=== PATIENT | male | born 1990 | race Caucasian/White ===

== ENCOUNTER 2022-06-21 08:43 | Emergency (ER) | payer MEDICAID, SELFPAY ==
[2022-06-21 08:53] VITALS: BP 136/93; BP 146/84; PULSE 102; PULSE 120; RESP 18; TEMP 36.7; O2SAT 100; O2SAT 97; BMI 25.1
--- NOTE | 2022-06-21 08:57 | ED_ITS ---
HPI - Overdose General Chief Complaint: Overdose Stated Complaint: OVERDOSE Time Seen by Provider: 06/21/22 08:57 Source: patient and EMS Mode of arrival: EMS History of Present Illness HPI Narrative: 32 yo male with history of opiate abuse, prior sobriety x7 months cold turkey presents to the emergency department via EMS for evaluation after he was given Narcan. Patient was found in his car this morning, pulled over the side of the road unresponsive and apneic. He was given 4 mg of intranasal Narcan. EMS arrived, IV was established an additional 2 mg of IV Narcan were given. Patient woke up and was awake and alert on his transport to the emergency room. He admits to using 2 bags of heroin her this morning, another 2 bags late last night. He reports he just was sober for 7 months and just relapsed. He states he relapsed because he ?lost God. ? No other drug use today. No alcohol use. MD complaint: accidental overdose Onset (ago): minute(s) Context: Accidental Overdose: wanted to get high Associated symptoms: depression Treatments Prior to Arrival: narcan Related Data Allergies Allergy/AdvReac Type Severity Reaction Status Date / Time No Known Allergies Allergy Unverified 08/05/20 15:46 [No Known Allergies*] Review of Systems Review of Systems: Constitutional: No Fever, No Chills ENT/Mouth: No sore throat, No Rhinorrhea Cardiovascular: No Chest Pain, No SOB, No Orthopnea, No Edema Respiratory: No Cough, No Sputum, No Wheezing, No dyspnea Gastrointestinal: + Nausea, No Vomiting, No Diarrhea, No abdominal Pain, No Hematochezia, No Melena Genitourinary: No Dysuria, No Urinary Frequency, No Hematuria Musculoskeletal: No joint pain, No Myalgias Skin: No Skin Lesions, No rash Neuro: No Weakness, No Numbness, No Dizziness, +Headache Psych: No Anxiety/Panic, + Depression, No SI, No HI Heme/Lymph: No Bruising, No Lymphadenopathy Endocrine: No Polyuria, No Polydipsia PMFSH Social History Social History Use of substances other than those prescribed or required for medical reasons: Yes Substance Use Type: Crack/Cocaine and Heroin Advance Directives: No Advance Directives Information Provided: No Physical Exam Vital Signs: Vital Signs: Last Vital Signs Temp 98.1 F 06/21/22 08:53 Pulse 102 H 06/21/22 08:53 Resp 18 08/03/22 08:53 BP 136/93 H 06/21/22 08:53 Pulse Ox 100 06/21/22 08:53 O2 Del Method 06/21/22 08:53 BMI result Body Mass Index 25.1 Appearance: Alert. Oriented X3. No acute distress. Eyes: Pupils 3mm equal, round and reactive to light. ENT: Pharynx normal. Neck: Normal inspection. Neck supple. CVS: Tachycardic, heart rate 105, regular rhythm.. Pulses normal. Respiratory: No respiratory distress. Breath sounds normal. Abdomen: Soft and nontender. +BS x4 Skin: Skin warm and dry. Normal skin color. Normal skin turgor. No rashes. Extremities: No lower extremity edema. No track gaines on his upper extremities. Neuro/psych: Oriented X 3. No motor deficit. No sensory deficit. Flat affect, does not make eye contact. Course Course Course Narrative: 32-year-old male presents to the ER for evaluation of opiate overdose, requiring Narcan after being found unresponsive and apneic in his car. He arrives to the ER alert and oriented x3. He is tachycardic to 105. Blood pressure stable. He reports a headache. Will order Motrin. No trauma. He is declining wishes to speak with a cross country coach or the care team. He is not suicidal and does not wish to get help. He states he can do this on his own. Reevaluation(s) Reevaluation #1: Patient has been observed in the emergency department for almost 3 hours. He is awake and alert, wants to go home. He does not want to talk with her cross country coach. He is stable for discharge home with outpatient follow-up. Critical Care Time Critical Care Time Critical Care Time: No Discharge Plan Discharge Clinical Impression: Drug overdose Patient Disposition: Home, Self-Care Instructions: Adult Overdose (ED) Additional Instructions: Do not do heroin it can kill you Recommend detox If you develop new or worsening symptoms call 911 or come back to the ER for further evaluation. Interventions: ED Discharge Assessment Last Done: 06/21/22 10:59 Discharge Date/Time: 06/21/22 10:59
[2022-06-21] MEDS: Ibuprofen 600 MG TABLET PO (09:31)
== END 2022-06-21 10:59 | disposition home or self-care (01) ==
PROVIDERS: Emergency Provider Emergency Medicine Emergency Medical Services
DX: T40.1X1A Poisoning by heroin, accidental (unintentional), initial encounter (principal); Y92.9 Unspecified place or not applicable; F14.19 Cocaine abuse with unspecified cocaine-induced disorder
CPT/HCPCS: 99283; 99284

== ENCOUNTER 2022-09-24 13:28 | Emergency (ER) | payer MEDICAID, SELFPAY ==
[2022-09-24 13:43] VITALS: O2SAT 95; BMI 25.4
--- NOTE | 2022-09-24 13:43 | ED_ITS ---
HPI - Overdose General Chief Complaint: Overdose Stated Complaint: OD,NARCAN GIVEN W/GOOD RESULTS PER EMS Time Seen by Provider: 09/24/22 13:43 Source: patient and EMS Mode of arrival: EMS Limitations: other (Noncompliant) History of Present Illness HPI Narrative: 32-year-old male presents via EMS for heroin overdose. Was found unresponsive at his home, given 8 mg of intranasal Narcan. Patient is uncooperative, refused vital signs during EMS transport. Patient is not answering questions at this time. He denies suicidal ideation and does not want detox. complaint: accidental overdose Onset (ago): hour(s) (Within the hour of arrival) Timing confirmed by: family member Context: Accidental Overdose: wanted to get high Associated symptoms: depression Treatments Prior to Arrival: narcan Related Data Allergies Allergy/AdvReac Type Severity Reaction Status Date / Time No Known Allergies Allergy Unverified 08/05/20 15:46 [No Known Allergies*] Review of Systems Review of Systems: Yes Other (Unobtainable as patient is noncompliant.) [facility] Past Medical History Attestation statement: The following information was validated with the patient. Source: old records reviewed Social History Social History Substance Use Type: Crack/Cocaine and Heroin Advance Directives: No Advance Directives Information Provided: No Physical Exam Vital Signs: Vital Signs: Last Vital Signs Temp 99.2 F 09/24/22 14:59 Pulse 82 09/24/22 14:59 Resp 20 09/24/22 14:59 BP 111/63 09/24/22 14:59 Pulse Ox 92 09/24/22 14:59 O2 Del Method 09/24/22 14:59 BMI result Body Mass Index 25.4 Appearance: Alert. Oriented X3. No acute distress. Eyes: Pupils equal, round and reactive to light. ENT: Pharynx normal. Neck: Normal inspection. Neck supple. CVS: Normal heart rate and rhythm. Pulses normal. Respiratory: No respiratory distress. Breath sounds normal. Abdomen: Soft and nontender. Skin: Skin warm and dry. Normal skin color. Normal skin turgor. Extremities: Moves all extremities against resistance. Neuro: No motor deficit. No sensory deficit. Cranial nerves 2-12 intact. Course Course Course Narrative: 32-year-old male presents for heroin overdose. Reports she used 2 bags heroin today, was found by family members. 911, EMS gave 8 mg of intranasal Narcan. After Narcan was given, patient alert and oriented, with even unlabored respirations. At this time patient is angry. Denies suicidal ideation, denies that this was an overdose. Does not want detox, does not want to answer any questions, does not want to speak to anyone else. He is answering questions with one-word answers. Patient has even unlabored respirations, vital signs have been refused by this patient. Patient has had prior visit for similar circumstance with similar presentation. 14:42 patient maintains even unlabored respirations, oxygen saturation 95-97% on room air. Patient will be discharged home. Patient understands that he is more than welcome to return at any time for evaluation. MDM - Overdose Differential Diagnosis Differential diagnosis: Likely drug overdose Medical Records Attestation: I reviewed the patient's medical records. Discharge Plan Discharge Clinical Impression: Drug overdose Patient Disposition: Home, Self-Care Instructions: Adult Overdose (ED) Additional Instructions: Consider detox. Thank you for choosing this emergency department for evaluation. Please follow-up with primary care physician as needed. Return to the emergency department for any new, concerning, or worsening symptoms.
--- NOTE | 2022-09-24 13:52 | PC.NURSE ---
Patient refusing vital signs from this RN provider Deidra notified.
--- NOTE | 2022-09-24 14:06 | PC.NURSE ---
Security called for cell changer
--- NOTE | 2022-09-24 14:14 | PC.NURSE ---
cell phone in locker #1
[2022-09-24 14:59] VITALS: BP 111/63; PULSE 82; RESP 20; TEMP 37.3; O2SAT 92
== END 2022-09-24 15:16 | disposition home or self-care (01) ==
PROVIDERS: Emergency Provider Emergency Medicine
DX: T40.1X1A Poisoning by heroin, accidental (unintentional), initial encounter (principal); Y92.9 Unspecified place or not applicable; Z71.51 Drug abuse counseling and surveillance of drug abuser
CPT/HCPCS: 99283

== ENCOUNTER 2024-06-21 21:29 | Emergency (ER) | payer MEDICAID, SELFPAY ==
[2024-06-21 21:59] VITALS: BP 105/62; PULSE 62; RESP 16; TEMP 36.4; O2SAT 95; BMI 22.9
[2024-06-22 00:12] VITALS: BP 111/69; PULSE 53; RESP 16; TEMP 36.4; O2SAT 97
--- NOTE | 2024-06-22 00:25 | ED.GENADULT ---
HPI - General Adult General Chief complaint: General Medical Stated complaint: rt ear pain Time Seen by Provider: 06/22/24 00:03 Source: patient and RN notes reviewed Mode of arrival: ambulatory Limitations: no limitations History of Present Illness ED Provider: Maame Dyson PA-C [facility] narrative: This is a 34-year-old male, with no known medical problems, who presents emergency department with complaints of right ear pain x3 days. Patient states that several days ago he went [place]. He states that several hours later he developed ear pain. He denies recent history of ear infections however states that he believes he had ear infections as a child. He states that he tried [id number] ear drops which did not provide him with any relief. He reports decreased hearing from the ear, and wetness n his right ear. Denies any fevers, chills, chest pain, shortness breath, cough. MD complaint: Right ear pain Onset (ago): day(s) Radiation: non-radiation Severity: moderate Quality: aching Pain Consistency: constant Relieving factors: none Exacerbating factors: none Associated symptoms: denies other symptoms Treatments prior to arrival: none Related Data Previous Rx's ?Medication ?Instructions ?Recorded amoxicillin 875 mg-potassium 1 tab PO BID 7 days #14 tabs 06/22/24 clavulanate 125 mg tablet ciprofloxacin 0.3 %-dexamethasone 4 drp otic (ears) BID 7 days #7.5 06/22/24 0.1 % ear drops,suspension mL Allergies Allergy/AdvReac Type Severity Reaction Status Date / Time No Known Allergies Allergy Verified 06/21/24 21:59 [No Known Allergies*] Review of Systems Review of Systems: Yes all other systems are reviewed and are negative Constitutional: Constitutional: Reports as per [facility] Past Medical History Attestation statement: The following information was validated with the patient. Social History Social History Alcohol intake: never Smoked in Last 30 Days: Yes Use of substances other than those prescribed or required for medical reasons: Yes Substance Use Type: Crack/Cocaine and Heroin Substance Use Frequency: Daily Advance Directives: No Advance Directives Information Provided: No Do you have a plan to hurt others: No Plan Physical Exam ED Vital Signs: Vital Signs - 24 hr 06/21/24 21:59 06/22/24 00:12 06/22/24 00:52 Temperature 97.6 F 97.6 F 97.6 F Pulse Rate 62 53 53 Respiratory Rate 16 16 16 Blood Pressure 105/62 111/69 111/69 Pulse Oximetry 95 97 97 Oxygen Delivery Method Room Air Room Air Room Air BMI result Body Mass Index 22.9 Const General: cooperative, comfortable and no acute distress Orientation/consciousness: patient oriented x3 Limitations: no limitations HENMT Other: Preauricular lymph node tenderness to palpation, no pain with ear tugging. No mastoid tenderness. Right auditory canal is very edematous, with exudates, TM is nearly swollen shut, unable to visualize any portion of the TM secondary to edema. Pain with physical exam Left TM unremarkable. Head: Yes normal to inspection, Yes normocephalic and Yes atraumatic Ears: hearing grossly normal bilaterally General nose exam: Normal external nose present Face and sinus: Yes normal facial exam Mouth: Normal oral and palatal mucosa present, oropharynx normal and moist mucous membranes Throat: Yes posterior oropharynx normal Eyes General: appearance normal, both eyes and all related structures Eyelids: Yes eyelids normal Conjunctivae: conjunctivae normal Sclerae: sclerae normal Pupils: Equal, round and reactive pupils present EOM: EOMs intact bilaterally Neck Neck: Yes normal visual inspection, Yes full ROM and Yes no lymphadenopathy Lymphatic: no lymphadenopathy noted Chest Chest palpation & inspection: normal inspection of the chest Resp Effort & Inspection: normal respiratory effort and able to speak in complete sentences Auscultation: clear to auscultation bilaterally, no crackles, no rales, no rhonchi and no wheezes Cardio Rate: regular rate Rhythm: regular rhythm Heart sounds: S1 normal heart sound present and S2 normal heart sound present GI Inspection: Yes normal to inspection Skin General skin exam: no rashes or lesions noted Trauma: no lacerations or abrasions Wounds: no wounds Neuro General: patient oriented x3 and moves all extremities Cranial nerves: Yes Equal, round and reactive pupils present Extrem General: Yes normal to inspection Right upper extremity: normal to inspection Left upper extremity: normal to inspection Right lower extremity: normal to inspection Left lower extremity: normal to inspection Medications Administered Discontinued Medications Generic Name Dose Route Start Last Admin Trade Name Freq PRN Reason Stop Dose Admin Amoxicillin/Clavulanate Potassium 875 mg 06/22/24 00:29 06/22/24 00:47 Amoxicillin/Potassium Clav 875 Mg Tablet PO 06/22/24 00:30 875 mg ONCE ONE Administration Medical Decision Making Medical Decision Making [facility] Narrative: This is a 34-year-old male with no known medical problems, who presents emergency department with complaints of right ear pain x3 days. On arrival, vital signs within normal limits. Right ear with significantly edematous auditory canal with exudates noted, consistent with otitis media. Unable to visualize TM. Given unable to discern whether not otitis media is present, will treat with oral and topical antibiotics. Wick was placed in right ear canal to help distribute the ear drops. Advised that if this does fall out, 2 not worry. Can have this removed in several days if needed. Given 1st dose of antibiotic in the department. Ciprodex is not on formulary therefore sent to the pharmacy. Patient given strict return precautions. He understands and agrees with plan. Patient stable for discharge. Differential Diagnosis Differential Diagnoses: The differential diagnosis associated with the presentation includes Otitis media, otitis externa, mastoiditis- unlikely, TM perforation Discharge Plan Discharge Clinical Impression: Otitis externa Patient Disposition: Home, Self-Care Instructions: Otitis Externa (ED) Additional Instructions: You were seen in the emergency department due to an ear infection. Your ear canal is very inflamed therefore we placed a wick in your ear. This will fall out in several days. This helps allow the medication to distribute further back into your ear canal. Please take prescribed antibiotic as directed. You were given your 1st dose of antibiotics in the department today. If any new or worsening symptoms occur including but not limited to worsening pain, swelling, fevers, chills, please return for re-evaluation. Prescriptions: New amoxicillin-pot clavulanate 875-125 mg tablet 1 tab PO BID 7 Days Qty: 14 0RF ciprofloxacin-dexamethasone 0.3-0.1 % drops,suspension 4 drp otic (ears) BID 7 Days Qty: 7.5 0RF Interventions: ED Discharge Assessment Last Done: 06/22/24 00:52 Discharge Date/Time: 06/22/24 00:54 Print Language: Amharic
[2024-06-22] MEDS: Amoxicillin/Potassium Clav 875 MG TABLET PO (00:47)
[2024-06-22 00:52] VITALS: BP 111/69; PULSE 53; RESP 16; TEMP 36.4; O2SAT 97
== END 2024-06-22 00:54 | disposition home or self-care (01) ==
PROVIDERS: Emergency Provider Emergency Medicine
DX: H60.91 Unspecified otitis externa, right ear (principal); H92.01 Otalgia, right ear
CPT/HCPCS: 99283; 99284

== ENCOUNTER 2024-07-02 19:46 | Emergency (ER) | payer MEDICAID, SELFPAY ==
[2024-07-02 19:57] VITALS: BP 107/75; PULSE 71; RESP 18; TEMP 36.7; O2SAT 97; BMI 23.0
--- NOTE | 2024-07-02 20:00 | ED.GENADULT ---
HPI - General Adult General Chief complaint: General Medical Stated complaint: ear infection Time Seen by Provider: 07/02/24 23:37 Source: patient, RN notes reviewed and old records reviewed Mode of arrival: ambulatory Limitations: no limitations History of Present Illness ED Provider: Vini CHAVEZ narrative: 34-year-old male presents for evaluation of right ear pain. Patient reports that about 2 weeks ago [place] 2 [place] a row He came here 10 days ago complaining of right ear pain He reports that he was prescribed a type of amoxicillin and a steroid drop He was having insurance issues so was unable to pick the prescription up initially His pain was somewhat improving when he is able to correct his insurance so he never picked up the prescriptions Since yesterday his pain has returned He called the pharmacy but was told that his prescriptions were no longer available He is complaining of continued right ear pain and drainage from the ear but denies any fevers, chills He did not stick anything in his ear The patient does admit that he took 3 doses of amoxicillin that were prescribed to a friend earlier today Severity: similar to prior episodes Severity scale (1-10): 7 Quality: aching Pain Consistency: constant Related Data Previous Rx's ?Medication ?Instructions ?Recorded amoxicillin 875 mg-potassium 1 tab PO BID 7 days #14 tabs 06/22/24 clavulanate 125 mg tablet ciprofloxacin 0.3 %-dexamethasone 4 drp otic (ears) BID 7 days #7.5 06/22/24 0.1 % ear drops,suspension mL amoxicillin 875 mg-potassium 1 tab PO Q12H #14 tabs 07/03/24 clavulanate 125 mg tablet ciprofloxacin 0.3 %-dexamethasone 4 drp otic (ears) BID 7 days #7.5 07/03/24 0.1 % ear drops,suspension mL Allergies Allergy/AdvReac Type Severity Reaction Status Date / Time No Known Allergies Allergy Verified 07/02/24 20:01 [No Known Allergies*] Review of Systems Constitutional: Constitutional: Denies body ache(s), Denies chills and Denies fever(s) Eyes: Eyes: Denies blurry vision ENT: Reports ear discharge, Reports otalgia and Denies sore throat Cardiovascular: Cardiovascular: Denies chest pain and Denies dyspnea Respiratory: Respiratory: Denies cough and Denies dyspnea Gastrointestinal: Gastrointestinal: Denies abdominal pain and Denies vomiting Musculoskeletal: Musculoskeletal: Denies back pain Integumentary/Breasts: Skin/Breast: Denies rash Psychiatric: Psychiatric: Denies anxiety [facility] Social History Social History Alcohol intake: never Substance Use Type: Crack/Cocaine and Heroin Advance Directives: No Advance Directives Information Provided: No Physical Exam ED Vital Signs: Vital Signs - 24 hr 07/02/24 19:57 07/02/24 22:10 Temperature 98.0 F 98.3 F Pulse Rate 71 58 Respiratory Rate 18 18 Blood Pressure 107/75 100/61 Pulse Oximetry 97 97 Oxygen Delivery Method Room Air Room Air BMI result Body Mass Index 23.0 Const General: healthy appearing, comfortable, no acute distress, alert and awake Nutritional Appearance: well nourished Orientation/consciousness: patient oriented x3 HENMT Other: There is no right mastoid tenderness or postauricular edema. There is right periauricular lymphadenopathy. There is some tenderness with manipulation of the tragus on the right. There is right external ear canal edema with whitish otorrhea. Visualized portion of the TM is also erythematous and bulging but no obvious perforation. Left TM is pearly white without erythema or effusion. Left external ear canal is clear Head: Yes normocephalic and Yes atraumatic Throat: Yes posterior oropharynx normal Eyes Eyelids: Yes eyelids normal Conjunctivae: conjunctivae normal Sclerae: sclerae normal Corneas: corneas normal Pupils: Equal, round and reactive pupils present EOM: EOMs intact bilaterally Neck Neck: Yes full ROM Resp Effort & Inspection: normal respiratory effort, able to speak in complete sentences and not labored Skin General skin exam: no rashes or lesions noted and elasticity normal Neuro General: patient oriented x3 Cranial nerves: Yes Equal, round and reactive pupils present and Yes Bilaterally intact EOM present Cognition (Neuro): normal cognition Extrem Other: Moving all extremities well without any obvious deformities Course Course Course Narrative: This is an RME done by OSEAS Jiménez: Additional HPI, ROS, PE not included below will be deferred to primary provider. 34-year-old male presents with right ear pain the past few days worsening however patient has been taking amoxicillin that he had at home with some relief of symptoms. However pain still present. Medical Decision Making Medical Decision Making MDM Narrative: Patient appears to have acute right otitis externa as well as otitis media. Based on history, otitis externa is more likely, however given that the TM is erythematous and bulging as well we will cover for both. He never picked up the prescriptions that were sent 10 days ago, I will recent these prescriptions for the patient. Differential Diagnosis Differential Diagnoses: The differential diagnosis associated with the presentation includes Otitis media Otitis externa Mastoiditis Malignant otitis externa Tympanic membrane rupture Lab Data 07/02/24 21:48 07/02/24 21:48 Labs: Lab Results 07/02/24 Range/Units 21:48 WBC 8.1 (4.8-10.8) X10*3/uL RBC 4.25 L (4.60-5.80) X10*6/uL Hgb 13.2 L (14.0-18.0) g/dl Hct 37.9 L (42.0-52.0) % MCV 89.2 (80.0-98.0) fL MCH 31.1 (27.0-33.0) pg MCHC 34.8 (31.0-36.0) g/dl RDW 12.5 (11.0-16.0) % Plt Count 202 (160-400) X10*3/uL MPV 9.1 L (9.4-12.4) fL Immature Gran % (Auto) 0.1 (0.0-0.4) % Neut % (Auto) 52.9 (45-73) % Lymph % (Auto) 37.2 (20-40) % [place] % (Auto) 7.2 (2-11) % Eos % (Auto) 2.0 (0-4) % Baso % (Auto) 0.6 (0-2) % Lymph # (Auto) 3.0 (1.2-4.9) X10*3/uL [place] # (Auto) 0.6 (0.1-1.2) X10*3/uL Eos # (Auto) 0.2 (0.0-0.4) X10*3/uL Baso # (Auto) 0.1 (0.0-0.2) X10*3/uL Abs Immat Gran (auto) 0.01 (0.00-0.03) X10*3/uL Absolute Neuts (auto) 4.3 (2.0-8.3) x10*3/uL Absolute Nucleated RBC 0.000 (0.0-0.012) X10*3/uL Nucleated RBC % (auto) 0.0 (0.0-0.2) /100WBC Sodium 140 (135-145) mmol/L Potassium 4.2 (3.3-5.1) mmol/L Chloride 107 (96-108) mmol/L Carbon Dioxide 27 (22-29) mmol/L Anion Gap 10 L (12-20) BUN 23 H (9-16) mg/dL Creatinine 0.92 (0.5-1.4) mg/dL Estim Creat Clear Calc 117.2 Estimated GFR > 60 Random Glucose 81 (60-115) mg/dL Calcium 8.9 (8.4-10.2) mg/dL Total Bilirubin 0.3 (0.0-1.0) mg/dL AST 25 (5-37) U/L ALT 12 (0-40) U/L Alkaline Phosphatase 63 (39-117) U/L Total Protein 7.3 (6.5-8.0) g/dL Albumin 4.1 (3.5-5.0) g/dL Influenza Type A (PCR) NEGATIVE (Negative) Influenza Type B (PCR) NEGATIVE (Negative) RSV RNA Qual (PCR) NEGATIVE (Negative) SARS-CoV-2 RNA (RT-PCR) NEGATIVE (Negative) Discharge Plan Discharge Clinical Impression: Otitis externa of right ear Patient Disposition: Home, Self-Care Instructions: Otitis Externa (ED) Additional Instructions: Your workup in the ER was reassuring. Take both antibiotics exactly as prescribed. Make sure you finish the entire course of antibiotics Follow-up with your primary doctor, return for new or worsening symptoms Prescriptions: New amoxicillin-pot clavulanate 875-125 mg tablet 1 tab PO Q12H Qty: 14 0RF ciprofloxacin-dexamethasone 0.3-0.1 % drops,suspension 4 drp otic (ears) BID 7 Days Qty: 7.5 0RF No Action amoxicillin-pot clavulanate 875-125 mg tablet 1 tab PO BID 7 Days Qty: 14 0RF ciprofloxacin-dexamethasone 0.3-0.1 % drops,suspension 4 drp otic (ears) BID 7 Days Qty: 7.5 0RF Print Language: Italian
[2024-07-02 21:53] LABS: MANUAL DIFF FLAG NO
[2024-07-02 21:55] LABS: Basophils Absolute Auto 0.1 X10*3/uL (0.0-0.2); Basophils Percent Auto 0.6 % (0-2); Eosinophils Absolute Auto 0.2 X10*3/uL (0.0-0.4); Hematocrit 37.9 % (42.0-52.0); Hemoglobin 13.2 g/dl (14.0-18.0); Imm Gran Abs Auto 0.01 X10*3/uL (0.00-0.03); Imm Gran Pct Auto 0.1 % (0.0-0.4); Lymphocytes Percent Auto 37.2 % (20-40); Mean Corpuscular HGB Conc 34.8 g/dl (31.0-36.0); Mean Corpuscular Hemoglobin 31.1 pg (27.0-33.0); Mean Corpuscular Volume 89.2 fL (80.0-98.0); Mean Platelet Volume 9.1 fL (9.4-12.4); Monocytes Absolute Auto 0.6 X10*3/uL (0.1-1.2); Monocytes Percent Auto 7.2 % (2-11); Neutrophils Absolute Auto 4.3 x10*3/uL (2.0-8.3); Neutrophils Percent Auto 52.9 % (45-73); Platelet Count 202 X10*3/uL (160-400); Red Blood Count 4.25 X10*6/uL (4.60-5.80); Red Cell Distribution Width 12.5 % (11.0-16.0); White Blood Count 8.1 X10*3/uL (4.8-10.8)
[2024-07-02 22:10] VITALS: BP 100/61; PULSE 58; RESP 18; TEMP 36.8; O2SAT 97
[2024-07-02 22:14] LABS: Alanine Aminotransferase 12 U/L (0-40); Albumin Level 4.1 g/dL (3.5-5.0); Alkaline Phosphatase 63 U/L (39-117); Anion Gap 10 (12-20); Aspartate Amino Transferase 25 U/L (5-37); Bilirubin Total 0.3 mg/dL (0.0-1.0); Blood Urea Nitrogen 23 mg/dL (9-16); Calcium 8.9 mg/dL (8.4-10.2); Carbon Dioxide 27 mmol/L (22-29); Chloride 107 mmol/L (96-108); Creatinine Clr Calc Pharmacy 117.2; Estimated Glomerular Filt Rate > 60; Glucose Random 81 mg/dL (60-115); Potassium 4.2 mmol/L (3.3-5.1); Sodium 140 mmol/L (135-145); Total Protein 7.3 g/dL (6.5-8.0)
[2024-07-02 22:30] LABS: Influenza A PCR NEGATIVE (Negative); Influenza B PCR NEGATIVE (Negative); Resp Syncy Virus RNA Qual PCR NEGATIVE (Negative); SARS COV2 PCR INHOUSE NEGATIVE (Negative)
[2024-07-03 00:41] VITALS: BP 110/64; PULSE 72; RESP 16; TEMP 36.6; O2SAT 97
== END 2024-07-03 00:43 | disposition home or self-care (01) ==
PROVIDERS: Physician Assistant; Emergency Provider Internal Medicine
DX: H60.91 Unspecified otitis externa, right ear (principal); Z03.818 Encounter for observation for suspected exposure to other biological agents ruled out; Z79.899 Other long term (current) drug therapy
CPT/HCPCS: 0241U; 80053; 85025; 99282; 99283

== ENCOUNTER 2025-03-24 14:42 | Outpatient (REF) | payer MEDICAID, SELFPAY ==
[2025-03-24 18:25] LABS: Alanine Aminotransferase 12 U/L (0-40); Albumin Level 4.7 g/dL (3.5-5.0); Alkaline Phosphatase 55 U/L (39-117); Anion Gap 11 (12-20); Aspartate Amino Transferase 26 U/L (5-37); Bilirubin Total 0.9 mg/dL (0.0-1.0); Blood Urea Nitrogen 25 mg/dL (9-16); Calcium 9.2 mg/dL (8.4-10.2); Carbon Dioxide 27 mmol/L (22-29); Chloride 108 mmol/L (96-108); Estimated Glomerular Filt Rate > 60; Glucose Random 74 mg/dL (60-115); Potassium 4.4 mmol/L (3.3-5.1); Sodium 142 mmol/L (135-145); Total Protein 7.6 g/dL (6.5-8.0)
[2025-03-25 05:10] LABS: HIV AB/AG Nonreactive (Nonreactive); HIV Num 1 0.09 S/CO (0.00-0.99); ~HepC Num1 14.44 S/CO (0.00-0.79); ~Hepatitis C Antibody Reactive (Nonreactive)
[2025-03-25 07:26] LABS: CT PCR NOT DETECTED (Not Detect.); NG PCR NOT DETECTED (Not Detect.)
[2025-03-25 12:02] LABS: RPR Rapid Plasma Reagin NON-REACTIVE (NON-REACTIVE)
[2025-03-27 13:23] LABS: HCV Log PCR <1.18 NOT DETECTED Log IU/mL (NOT DETECTED); HepC Viral Load <15 NOT DETECTED IU/mL (NOT DETECTED)
== END 2025-03-24 14:43 | disposition home or self-care (01) ==
LOC: HO.HHCL 14:42
PROVIDERS: Visit Provider Nurse Practitioner Family
DX: Z00.00 Encounter for general adult medical examination without abnormal findings (principal); K75.9 Inflammatory liver disease, unspecified
CPT/HCPCS: 36415; 80053; 86592; 86803; 87389; 87491; 87522; 87591

== ENCOUNTER 2025-04-22 13:42 | Outpatient (REF) | payer MEDICAID, SELFPAY ==
--- NOTE | ~2025-04-22 | US_ITS ---
CLINICAL HISTORY: r out right inguinal hernia Soft tissue ultrasound of the right inguinal region Comparison: None FINDINGS: Images were obtained in the area of clinical concern. In this region, the soft tissue shows no evidence of inguinal hernia. There are multiple inguinal lymph nodes with fatty hilum: 2.1 x 0.3 x 1.7 cm. IMPRESSION: No evidence of inguinal hernia. Possible reactive inguinal lymph nodes. This document has been electronically signed by: Linda Christine MD on 04/22/2025 16:44:55
--- OUTSIDE RECORDS SUMMARY | 2025-04-22 13:55 | XMS_ITS | Clinical Summary ---
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 acetaminophen (Tylenol) 500 MG tablet Take 2 tablets (1,000 mg) by mouth every 6 (six) hours if needed for moderate pain or fever for up to 25 doses. 30 tablet 12/22/19 25 Active ibuprofen 400 MG tablet Take 1 tablet (400 mg) by mouth every 6 (six) hours if needed for moderate pain or fever for up to 30 doses. 30 tablet 12/22/19 25 Active nicotine (Nicoderm, Step 1) 21 MG/24HR patch Place 1 patch on the skin 1 (one) time each day at the same time. 30 patch 2 04/07/20 25 025 Active nicotine (Nicoderm, Step 1) 21 MG/24HR patch 025 Discontinued(Re order (will not trigger notification to Pharmacy)) Active Problems Problem Noted Date Diagnosed Date Hepatitis C antibody positive 03/27/2025 Healthcare maintenance 03/24/2025 Assessment & Plan (03/24/2025 2:42 PM EDT): Anticipatory guidance reviewed, sti screening completed today, Continues to work actively on smoking cessation Right inguinal hernia 03/24/2025 Assessment & Plan (03/24/2025 2:25 PM EDT): Consistent with right inguinal hernia Hepatitis 03/24/2025 Assessment & Plan (03/24/2025 2:42 PM EDT): Hx of, check labs today Dental calculus 03/18/2025 H/O chronic hepatitis 12/22/2024 Tobacco dependence 12/22/2024 Assessment & Plan (03/24/2025 2:26 PM EDT): Tapering to vape Opioid dependence in remission 12/22/2024 Assessment & Plan (03/24/2025 2:26 PM EDT): 1.5 years sober, no concerns about sobriety Dental caries 02/20/2023 Dental abscess 02/20/2023 Opioid dependence with opioid-induced mood disor benitez 01/10/2019 Assessment & Plan (03/24/2025 2:42 PM EDT): Stable denies cravings, 1.5 year anticipatory guidance as reviewed Anxiety 01/10/2019 Depressive disorder 04/23/2013 Encounters Date Type Department Care Team Description 04/07/2025 Refill [facility] [address] [place] [phone] Chrissy Adams NP 04/01/2025 Telephone [facility] [address] [place] [phone] Chrissy Adams NP 03/25/2025 Telephone [facility] [address] [place] [phone] Chrissy Adams NP Medication Question (Pt is requesting nicotine patches , pt stated he forgot to mention to pcp in visit that he needs them ) 03/24/2025 2:00 PM EDT Office Visit [facility] [address] [place] [phone] Chrissy Adams NP Opioid dependence in remission (CMS/HCC) (Primary Dx); Opioid dependence with opioid-induced mood disorder (CMS/HCC); Tobacco dependence; Healthcare maintenance; Right inguinal hernia; Hepatitis 03/24/2025 Travel 03/23/2025 Telephone [facility] [address] [place] [phone] Lorena Rodriguez MA Chart Prep 03/18/2025 9:00 AM EDT Office Visit [facility] ADULT DENTAL [address] [place] [address] Vandana Ramsay Dental caries (Primary Dx); Dental plaque; Dental calculus 03/11/2025 Telephone [facility] [address] [place] [address] Chrissy Adams NP No Show 03/02/2025 Patient Outreach [facility] [address] [place] [address] Chrissy Adams NP Pre-visit Planning (SDOH unable to reach LVM) 02/25/2025 Telephone [facility] [address] [place] [address] Lorena Rodriguez MA Chart Prep 01/30/2025 Population Health Risk Score [facility] () [address] [phone] Provider, Population Health Generic from Last 3 Months Immunizations Immunization Administration Dates Next Due Hep A, Adult 10/09/2008 Hep B, adult 02/05/2006 Influenza, High Dose Seasonal, Preservative Free 08/16/2017 TD (adult), 2 Lf tetanus tox oid, preservative free, adsorbed 10/13/2008 Tdap 02/17/2019 Family History Medical History Relation Name Comments OD Mother Relation Name Status Comments Father Mother Social History Tobacco Use Types Packs/Day Years Used Date Smoking Tobacco: Former Cigarettes 0.3 0.5 Passive Smoke Exposure: Past Smokeless Tobacco: Former Tobacco Cessation:Counseling Given: Not Answered Alcohol Use Standard Drinks/Week Comments Never 0 (1 standard drink = 0.6 oz pur e alcohol) Depression Answer Date Recorded Patient Health Questionnaire-9 Score 4 03/24/2025 Patient Health Questionnaire-9 Score 4 03/24/2025 Last PHQ-9: Questionnaire Data Not on file 0 03/24/2025 Housing Stability Answer Date Recorded What is your housing situation today? I have lisa holland 03/24/[address] you li ve. Do you have problems with any of the following? None of the above 03/24/2025 Food Insecurity Answer Date Recorded Within the past 12 months, y ou worried that your food would run out before you got money to buy more: Never True 03/24/2025 Within the past 12 months,th e food you bought just didn't last and you didn't have enough money to get more: Never True 04/2025 Transportation Answer Date Recorded In the past 12 months, has l ack of transportation kept you from medical appts, meetings, work or from getting things needed for daily living? Yes, it has kept me from non-medical meetings, work, or getting things that I need 03/24/2025 Utilities Answer Date Recorded In the past 12 months, has t he electric, gas, oil or water company threatened to shut off services in your home? No 03/24/2025 Depression Answer Date Recorded Patient Health Questionnaire-2 Score 1 03/24/2025 Internet Access Answer Date Recorded Internet Access Q1 Yes 03/24/2025 Internet Access Q2 Not on file 03/24/2025 Sex and Gender Information Value Date Recorded Sex Assigned at Male 09/18/2022 10:22 AM EDT Legal Sex Male 10:22 AM EDT Gender Identity Male 09/18/2022 10:22 AM EDT Sexual Orientation Straight 09/18/2022 10 :22 AM EDT Last Filed Vital Signs Vital Sign Reading Time Taken Comments Blood Pressure 131/77 03/24/2025 2:05 PM EDT Pulse 102 03/24/2025 2:05 PM EDT Temperature 37 ??C (98.6 ??F) 03/24/2025 2:05 PM EDT Respiratory Rate 20 03/24/2025 2:05 PM EDT Oxygen Saturation 99% 03/24/2025 2:05 PM EDT Inhaled Oxygen Concentration - - Weight 68 kg (150 lb) 03/24/2025 2:05 PM EDT Height 177.8 cm (5' 10 ) 03/24/2025 2:05 PM EDT Body Mass Index 21.52 03/24/2025 2:05 PM EDT Plan of Treatment Upcoming Encounters Date Type Department Care Team (Late st Contact Info) Description 05/04/2025 8:00 AM EDT Office Visit [facility] ADULT DENTAL [address], [place] [phone] Gabriele Santacruz DDS [address], [place] [phone] Health Maintenance Due Date Last Done Comments Lipid Panel 1988 Family Planning (PISQ) 2003 Hepatitis B Vaccines (2 of 3 - 3-dose series) 03/05/2006 02/05/2006 Hepatitis A Vaccines (2 of 2 - Risk 2-dose series) 04/08/2009 10/09/2008 COVID-19 Vaccine (1 - 2023-2 5 season) 2024 Influenza Vaccine (Season Ended) 2025 08/16/2017 Dental Oral Exam 09/18/2025 03/18/2025 Dental Prophylaxis 09/18/2025 03/18/2025 Dental X-Ray: Bitewings 2026 03/18/2025 Alcohol/Substance Use Screening 03/24/2026 03/24/2025 Depression Screening 03/24/2026 03/24/2025, 03/24/2025 Disability Screening 03/24/2026 03/24/2025 SDOH Screening 03/24/2026 03/24/2025 Tobacco Screening 03/24/2026 03/24/2025 Dental X-Ray: Full Mouth 2028 025, 02/20/2023 DTaP/Tdap/Td Vaccines (2 - T d or Tdap) 02/17/2029 02/17/2019, 10/13/2008 Zoster Vaccines (1 of 2) 2038 RSV Patients and Patients Aged 60 years or older (1 - 1-dose 75+ series) 2063 HIV Screening Completed 03/24/2025 Hepatitis C Screening Completed 03/24/2025 , 03/24/2025 HIB Vaccines Aged Out No longer eligi ble based on patient's age to complete this topic HPV Vaccines Aged Out No longer eligi ble based on patient's age to complete this topic IPV Vaccines Aged Out No longer eligi ble based on patient's age to complete this topic Meningococcal B Vaccine Aged Out No l onger eligible based on patient's age to complete this topic Meningococcal Vaccine Aged Out No maame patito eligible based on patient's age to complete this topic Pneumococcal Vaccine: Pediatrics (0 to 5 Years) and At-Risk Patients (6 to 49) Years) Aged Out No longer eligible b ased on patient's age to complete this topic RSV under 20 months Aged Out No longe r eligible based on patient's age to complete this topic Rotavirus Vaccines Aged Out No longer eligible based on patient's age to complete this topic Procedures Procedure Name Priority Date/Time Associated Diagnosis Comments HEPATITIS C VIRAL RNA, QUANTITATIVE, REAL-TIME PCR Routine 03/24/2025 2:45 PM EDT COMPREHENSIVE METABOLIC PANEL Routine 03/24/2025 2:45 PM EDT Hepatitis RPR (MONITOR) W/REFL TITER Routine 03/24/2025 2:45 PM EDT Healthcare maintenance HEPATITIS C AB W/REFL TO HCV RNA, QN, PCR Routine 03/24/2025 2:45 PM EDT Healthcare maintenance HIV 1/2 ANTIGEN/ANTIBODY, FOURTH GENERATION W/RFL Routine 03/24/2025 2:45 PM EDT Healthcare maintenance CHLAMYDIA/N. GONORRHOEAE RNA, TMA, UROGENITAL Routine 03/24/2025 2:07 PM EDT Healthcare maintenance ORAL HYGIENE INSTRUCTIONS Routine 03/18/2025 9:00 AM EDT Dental caries Dental plaque Dental calculus INTRAORAL - COMPLETE SERIES OF RADIOGRAPHIC IMAGES Routine 03/18/2025 9:00 AM EDT PROPHYLAXIS - ADULT Routine 03/18/2025 9 :00 AM EDT Dental plaque Dental calculus CASE PRESENTATION, DETAILED AND EXTENSIVE TREATMENT PLANNING Routine 03/18/2025 9:00 AM EDT COMPREHENSIVE ORAL EVALUATION - NEW OR ESTABLISHED PATIENT Routine 03/18/2025 9:00 AM EDT from Last 3 Months Results * Hepatitis C Viral RNA, Quantitative, Real-Time PCR (03/24/2025 2:45 PM EDT) Hepatitis C Viral Load <15 NOT DETECTED NOT DETECTED IU/mL [facility] HCV Log PCR <1.18 NOT DETECTED NOT DETECTED Log IU/mL [facility] Comment:For additional infor mike, please refer [email or web address]/faq/IBC18a0(This link is being provided for informational/educational purposes only.)THIS TEST WAS PERFORMED AT:[facility] [place] [id number] BOLAND MD 03/24/2025 2:45 PM EDT 03/25/2025 10:22 AM EDT Chrissy Adams NP LAB BLOOD ORDERABLES Final Resul t Performing Organization Address [facility] Co de Phone Number [facility] [address] [place] [phone] * (ABNORMAL) Hepatitis C Antibody with Reflex to HCV, RNA, Quantitative, Real- Time PCR (03/24/2025 2:45 PM EDT) Hepatitis C Antibody Reactive( A) Nonreactive [facility] Comment:Presumptive evidence of antibodies to HCV. Blood Venous blood specimen / Unknown 03/24/2025 2:45 PM EDT 03/24/2025 4:02 PM EDT Chrissy Adams NP LAB BLOOD ORDERABLES Final Resul t Performing Organization Address [facility] de Phone Number [facility] [address] [place] [phone] * RPR (Monitor) with Reflex to??Titer (03/24/2025 2:45 PM EDT) RPR (Monitor) w/Refl Titer NON-REACTI VE NON-REACT DESIREE [facility] Comment:THIS TEST WAS PERFOR MED AT:[facility] [place] [phone] BOLAND MD Rapid Plasma Reagin Ab Titer TNP [facility] Blood Venous blood specimen / Unknown 03/24/2025 2:45 PM EDT 03/24/2025 4:02 PM EDT Chrissy Graef HEALTH INSURANCE ADJUSTER LAB BLOOD ORDERABLES Final Resul t Performing Organization Address [facility]/ZIP Co de Phone Number [facility] [address] [place] [address] [phone] * HIV-1/2 Antigen and Antibodies, Fourth Generation, with Reflexes (03/24/2025 2:45 PM EDT) HIV AB/AG Nonreactive Nonreactive [facility] Comment:HIV-1 p24 Ag and/or HIV-1/HIV-2 Ab not detected.A test result that is nonreactive does not exclude thepossibility of exposure to or infection with HIV-1 and/orHIV-2. Nonreactive results in this assay for individualswith prior exposure to HIV-1 and/or HIV-2 may be due toantigen and antibody levels that are below the limit ofdetection of this assay.[employer] HIV Ag/Ab Combo assay result andsupplemental assay results should be interpreted inconjunction with the patient's clinical presentation,history and other laboratory results. If the results areinconsistent with clinical evidence, additional testing issuggested to confirm the result. Blood Venous blood specimen / Unknown 03/24/2025 2:45 PM EDT 03/24/2025 4:02 PM EDT us Chrissy Adams NP LAB BLOOD ORDERABLES Final Resul t Performing Organization Address [facility]/ZIP Co de Phone Number [facility] [address] [place] [address] [phone] * (ABNORMAL) Comprehensive Metabolic Panel (03/24/2025 2:45 PM EDT) Sodium 142 135 - 145 mmol/L [facility] Potassium 4.4 3.3 - 5.1 mmol/L [facility] Chloride 108 96 - 108 mmol/L [facility] Carbon Dioxide 27 22 - 29 mmol/L [facility] Anion Gap 11(L) 12 - 20 [facility] Urea Nitrogen (BUN) 25(H) 9 - 16 mg/dL [facility] Creatinine, Serum 1.06 0.5 - 1.4 mg/dL [facility] Estimated Glomerular Filt Rate >60 [facility] Comment:Chronic Kidney Disea se: Estimated GFR < 60 mL/min/1.52i6Fpuned Kidney Disease: Estimated GFR < 15 mL/min/1.73m2 Glucose 74 60 - 115 mg/dL [facility] Calcium 9.2 8.4 - 10.2 mg/dL [facility] Bilirubin, Total 0.9 0.0 - 1.0 mg/dL [facility] Aspartate Amino Transferase 26 5 - 37 U/L [facility] Alanine Aminotransferase 12 0 - 40 U/L [facility] Total Protein 7.6 6.5 - 8.0 g/dL [facility] Albumin Level 4.7 3.5 - 5.0 g/dL [facility] Alkaline Phosphatase 55 39 - 117 U/L [facility] Blood Venous blood specimen / Unknown 03/24/2025 2:45 PM EDT 03/24/2025 4:02 PM EDT us Chrissy Adams HEALTH INSURANCE ADJUSTER LAB BLOOD ORDERABLES Final Resul t [facility] [address] [place] [phone] * Chlamydia/N. Gonorrhoeae RNA, TMA, Urogenitial (03/24/2025 2:07 PM EDT) CT PCR NOT DETECTED Not Detect. [facility] Comment:A not detected test result does not exclude the possibilityof infection because test results can be affected byimproper specimen collection, concurrent antibiotic therapy,or the number of organisms in the specimen which may bebelow the sensitivity of the test. As with many diagnostictests, results from the Xpert CT/NG assay should beinterpreted in conjunction with other laboratory andclinical data available to the clinician.Xpert CT/NG performance has not been evaluated in patientsless than 14 years of age. The assay should not be used forthe evaluationof suspected sexual abuse or for other medico-legalindications. Additional testing is recommended in anycircumstance when false positive or false negative resultscould lead to adverse medical, social or psychologicalconsequences. NG PCR NOT DETECTED Not Detect. [facility] Comment:A not detected test result does not exclude the possibilityof infection because test results can be affected byimproper specimen collection, concurrent antibiotic therapy,or the number of organisms in the specimen which may bebelow the sensitivity of the test. As with many diagnostictests, results from the Xpert CT/NG assay should beinterpreted in conjunction with other laboratory andclinical data available to the clinician.Xpert CT/NG performance has not been evaluated in patientsless than 14 years of age. The assay should not be used forthe evaluationof suspected sexual abuse or for other medico-legalindications. Additional testing is recommended in anycircumstance when false positive or false negative resultscould lead to adverse medical, social or psychologicalconsequences. Urine (Urine, Random) 03/24/2025 2:07 PM EDT 03/24/2025 5:28 PM EDT Narrative [facility] - 03/25/2025 7:26 AM EDT Urine Chrissy Adams NP LAB MICROBIOLOGY - GENERAL ORDER ROSANGELA Final Result Performing Organization Address City/State/[facility] Co de Phone Number [facility] [address] [place] [address] [phone] from Last 3 Months [facility] STAND ADULT Care Teams Cut Off Saw Operator Metal Relationship Specialty Start Date End Date Chrissy Adams NP [address] [place] [phone] PCP - General Family Medicine 12/22/24
== END 2025-04-22 13:43 | disposition home or self-care (01) ==
LOC: HO.US 13:42
PROVIDERS: PCP Nurse Practitioner Family; Visit Provider Nurse Practitioner Family
DX: K40.90 Unilateral inguinal hernia, without obstruction or gangrene, not specified as recurrent (principal)
CPT/HCPCS: 76857

== ENCOUNTER → 2025-04-22 13:47 | Outpatient (BNV) | payer MEDICAID, SELFPAY | PROVIDERS: PCP Nurse Practitioner Family; Visit Provider Nuclear Medicine | DX: R59.0 Localized enlarged lymph nodes (principal) | CPT/HCPCS: 76857 ==